=== PATIENT | female | born 1945 | race Caucasian/White ===

== ENCOUNTER → 2016-05-29 | Outpatient (CLI) | payer MEDICARE, OTHER ==
[~2016-05-29] MED LIST: ASPIRIN 81M81 MG/TA2 PO; CALTRATE-600 W600 MG PO; GLUCOPHAGE500 MG/TAB PO
== END ==
LOC: MC.RAD 13:38
DX: Z12.31 Encounter for screening mammogram for malignant neoplasm of breast (principal)